=== PATIENT | male | born 1950 | race Native Hawaiian/Other Pacific Islander ===

== ENCOUNTER 2016-08-06 05:43 | Outpatient (CLI) | payer OTHER ==
[~2016-08-06 05:43] MED LIST: ALBU0.5N13 IN; ALBUTEROL0.083 % IN; BYSTOLIC5 MG PO; FLUTICASONE50 MCG; FLUTMIS6 INH; LEVAQUIN500 MG OR; PRILOSEC20 MG OR; SIMV40TA57
[2016-08-06 06:50] LABS: POTASSIUM 3.8 mmol/L (3.6-5.2); SODIUM 138 mmol/L (136-145)
[2016-08-06 06:51] LABS: PLATELET COUNT 305 K/uL (142-355)
== END 2016-08-06 19:01 | disposition home or self-care (01) ==
LOC: LABW 05:43
PROVIDERS: Internal Medicine
DX: Z00.00 Encounter for general adult medical examination without abnormal findings (principal); I10 Essential (primary) hypertension; Z79.899 Other long term (current) drug therapy; Z51.81 Encounter for therapeutic drug level monitoring
CPT/HCPCS: 36415; 80053; 80061; 81000; 84153; 84439; 84443; 85027

== ENCOUNTER 2016-08-17 07:45 | Outpatient (CLI) | payer OTHER | END 2016-08-17 19:22 | disposition home or self-care (01) | LOC: US 07:45 | DX: Z13.6 Encounter for screening for cardiovascular disorders (principal) ==

== ENCOUNTER 2017-03-21 21:43 | Emergency (ER) | payer OTHER ==
[~2017-03-21] VITALS: Ht 177.8 cm; Wt 93.9 kg
[2017-03-21 23:28] VITALS: BP 124/72; TEMP 98.2
== END 2017-03-21 23:29 | disposition home or self-care (01) ==
LOC: ED 21:43
DX: S20.212A Contusion of left front wall of thorax, initial encounter (principal); W18.39XA Other fall on same level, initial encounter; Y92.830 Public park as the place of occurrence of the external cause
CPT/HCPCS: 96372; 99283; J1885

== ENCOUNTER 2018-04-21 04:49 | Outpatient (CLI) | payer OTHER ==
[2018-04-21 05:20] LABS: PLATELET COUNT 277 K/uL (142-355)
[2018-04-21 05:43] LABS: POTASSIUM 3.7 mmol/L (3.6-5.2)
== END 2018-04-21 21:40 | disposition home or self-care (01) ==
LOC: LABW 04:49
PROVIDERS: Internal Medicine
DX: Z00.00 Encounter for general adult medical examination without abnormal findings (principal); Z12.5 Encounter for screening for malignant neoplasm of prostate; E78.00 Pure hypercholesterolemia, unspecified; R94.6 Abnormal results of thyroid function studies
CPT/HCPCS: 36415; 80053; 80061; 81000; 84153; 84439; 84443; 85027